=== PATIENT | female | born 1930 | race Caucasian/White ===

== ENCOUNTER → 2016-11-22 | Outpatient (CLI) | payer OTHER | END | disposition home or self-care (01) | LOC: PCVCCLINIC 10:56 | PROVIDERS: ATTEND Internal Medicine | DX: I48.0 Paroxysmal atrial fibrillation (principal); I10 Essential (primary) hypertension; E78.5 Hyperlipidemia, unspecified; G47.33 Obstructive sleep apnea (adult) (pediatric); M19.90 Unspecified osteoarthritis, unspecified site; E11.9 Type 2 diabetes mellitus without complications; Z86.79 Personal history of other diseases of the circulatory system; Z79.01 Long term (current) use of anticoagulants; Z79.899 Other long term (current) drug therapy; Z88.6 Allergy status to analgesic agent; Z88.8 Allergy status to other drugs, medicaments and biological substances | CPT/HCPCS: 80061; 93005; G0463 ==

== ENCOUNTER → 2017-06-15 | Outpatient (CLI) | payer OTHER | END | disposition home or self-care (01) | LOC: PCVCCLINIC 13:20 | DX: I48.0 Paroxysmal atrial fibrillation (principal); I48.4 Atypical atrial flutter; I71.4 Abdominal aortic aneurysm, without rupture; I10 Essential (primary) hypertension; E78.5 Hyperlipidemia, unspecified; E11.9 Type 2 diabetes mellitus without complications; G47.33 Obstructive sleep apnea (adult) (pediatric); Z95.0 Presence of cardiac pacemaker; Z79.899 Other long term (current) drug therapy; Z79.01 Long term (current) use of anticoagulants | CPT/HCPCS: 80061; 85610; 93005; G0463 ==

== ENCOUNTER → 2017-12-19 | Outpatient (CLI) | payer OTHER | END | disposition home or self-care (01) | LOC: PCVCCLINIC 10:59 | DX: I48.0 Paroxysmal atrial fibrillation (principal); I10 Essential (primary) hypertension; E78.5 Hyperlipidemia, unspecified; I71.4 Abdominal aortic aneurysm, without rupture; E11.9 Type 2 diabetes mellitus without complications; G47.33 Obstructive sleep apnea (adult) (pediatric); R94.31 Abnormal electrocardiogram [ECG] [EKG]; Z95.0 Presence of cardiac pacemaker; Z88.8 Allergy status to other drugs, medicaments and biological substances; Z79.899 Other long term (current) drug therapy | CPT/HCPCS: 80061; 93005; 93280; G0463 ==

== ENCOUNTER → 2018-09-26 | Outpatient (CLI) | payer OTHER | END | disposition home or self-care (01) | LOC: PCVCCLINIC 10:50 | PROVIDERS: ATTEND Internal Medicine | DX: I48.0 Paroxysmal atrial fibrillation (principal); I11.0 Hypertensive heart disease with heart failure; I50.32 Chronic diastolic (congestive) heart failure; E78.5 Hyperlipidemia, unspecified; I71.4 Abdominal aortic aneurysm, without rupture; E11.9 Type 2 diabetes mellitus without complications; G47.33 Obstructive sleep apnea (adult) (pediatric); M19.90 Unspecified osteoarthritis, unspecified site; Z95.0 Presence of cardiac pacemaker; Z90.49 Acquired absence of other specified parts of digestive tract; Z90.710 Acquired absence of both cervix and uterus; Z79.01 Long term (current) use of anticoagulants; Z88.5 Allergy status to narcotic agent; Z88.8 Allergy status to other drugs, medicaments and biological substances | CPT/HCPCS: 36415; 80061; 93005; G0463 ==

== ENCOUNTER → 2019-05-13 | Outpatient (CLI) | payer OTHER ==
--- NOTE | 2019-05-13 14:22 | PCVCIMAG ---
APPROVED REPORT Study performed: 05/13/2019 12:48:46 EXAM: Comprehensive 2D, Doppler, and color-flow Echocardiogram Patient Location: Echo lab Status: routine BSA: 1.94 HR: 60 bpmBP: 152/72 mmHg Rhythm: NSR Other Information Study Quality: Adequate Indications Diabetes Pacemaker parox a fib 2D Dimensions IVSd: 13.10 (7-11mm) LVDd: 43.67 mm PWd: 11.60 (7-11mm)Ascending Ao: 40.81 (22-36mm) LVDs: 32.59 (25-40mm) Left Atrium: 42.80 (27-40mm) Aortic Root: 36.31 mm LV Single Plane 4CH: 59.75 % LV Single Plane 2CH: 62.77 % Biplane EF: 60.9 % Volumes Left Atrial Volume (Systole) Single Plane 4CH: 103.34 mLSingle Plane 2CH: 129.10 mL LA ESV Index: 60.00 mL/m2 Aortic Valve AoV Peak Luis.: 1.90 m/s AO Peak Gr.: 14.45 mmHgLVOT Max P.47 mmHg LVOT Max V: 1.37 m/s AI Vmax: 4.35 m/s AI Atkinson: 2.60 m/s2 AI PHT: 484.20 ms Mitral Valve E/A Ratio: 1.9 MV Decel. Time: 202.34 ms MV E Max Luis.: 1.12 m/s MV A Luis.: 0.59 m/s IVRT: 93.43 ms Pulmonary Valve PV Peak Luis.: 0.98 m/sPV Peak Gr.: 3.86 mmHg Pulmonary Vein P Vein S: 0.63 m/sP Vein A: 0.28 m/s P Vein D: 0.50 m/sP Vein A Dur.: 152.2 msec P Vein S/D Ratio: 1.26 Tricuspid Valve TR Peak Luis.: 3.00 m/s TR Peak Gr.: 36.02 mmHg Left Ventricle The left ventricle is normal size. There is normal LV segmental wall motion. Mild concentric left ventricular hypertrophy. Left ventricular systolic function is normal. The left ventricular ejection fraction is within the normal range. LVEF is 60-65%. The left ventricular diastolic function is normal. Right Ventricle The right ventricle is normal size. The right ventricular systolic function is normal. Pacemaker lead is present in the right ventricle. Atria Left atrium is severely dilated. Right atrium is moderately dilated. A pacemaker lead is seen in the right atrium consistent with history. Aortic Valve Mild aortic valve sclerosis. Mild aortic regurgitation. There is no aortic valvular stenosis. Mitral Valve Mild mitral annular calcification Mild mitral regurgitation. No evidence of mitral valve stenosis. Tricuspid Valve The tricuspid valve is normal in structure. Mild to moderate tricuspid regurgitation with PAP of 43 mmHg. Pulmonic Valve The pulmonary valve is normal in structure. There is trace pulmonic valvular regurgitation. Great Vessels The aortic root is normal in size. Ascending aorta is mildly dilated (4.1 cm). IVC is normal in size and collapses >50% with inspiration. Pericardium There is no pericardial effusion. There is no pleural effusion. <Conclusion> Left ventricular systolic function is normal. There is normal LV segmental wall motion. LVEF is 60-65%. Both atria are dilated. Mild aortic valve sclerosis. Mild aortic regurgitation, no stenosis. Mild mitral annular calcification. Mild mitral regurgitation. Mild to moderate tricuspid regurgitation with pulmonary artery pressure of 43 mmHg. Ascending aorta is mildly dilated (4.1 cm). There is no pericardial effusion.
== END | disposition home or self-care (01) ==
LOC: PCVCIMAG 13:01
PROVIDERS: ATTEND Internal Medicine
DX: I08.3 Combined rheumatic disorders of mitral, aortic and tricuspid valves (principal); G47.33 Obstructive sleep apnea (adult) (pediatric); I11.0 Hypertensive heart disease with heart failure; I50.32 Chronic diastolic (congestive) heart failure; I48.0 Paroxysmal atrial fibrillation; I48.4 Atypical atrial flutter; I71.4 Abdominal aortic aneurysm, without rupture; M19.90 Unspecified osteoarthritis, unspecified site; Z95.0 Presence of cardiac pacemaker; Z86.73 Personal history of transient ischemic attack (TIA), and cerebral infarction without residual deficits; Z90.49 Acquired absence of other specified parts of digestive tract; Z90.710 Acquired absence of both cervix and uterus; Z82.49 Family history of ischemic heart disease and other diseases of the circulatory system; Z88.8 Allergy status to other drugs, medicaments and biological substances; Z88.5 Allergy status to narcotic agent; Z79.01 Long term (current) use of anticoagulants; Z79.899 Other long term (current) drug therapy
CPT/HCPCS: 93306